=== PATIENT | male | born 1995 | race Caucasian/White ===

== ENCOUNTER 2017-12-29 05:24 | Emergency (ER) | payer OTHER ==
--- NOTE | 2017-12-29 05:49 | EDM.PDOC ---
ED HPI GENERAL MEDICAL PROBLEM - General Chief Complaint: Back Pain or Injury Stated Complaint: NECK/SHOULDER PAIN Time Seen by Provider: 12/29/17 05:40 - History of Present Illness INITIAL COMMENTS - FREE TEXT/NARRATIVE: HISTORY AND PHYSICAL: History of present illness: The patient is a healthy 22-year-old male who states that he has muscle spasm and pain at the right side of his neck that started yesterday morning when he turned his head quickly. He did not fall or hit his head or neck. He says the pain is not in the bones are in the midline of the neck but is in the muscles of the trapezius and the upper shoulder girdle on the right only. The pain does not radiate to his arm and there is no weakness or neurosensory changes in his arm. He has taken ibuprofen and the pain is still there and he would like to go back to work. He last took 800 mg of ibuprofen at approximately 4 AM. He has no other injuries or discomfort and no other systemic complaints Review of systems: As per history of present illness and below otherwise all systems reviewed and negative. Past medical history: As per history of present illness and as reviewed below otherwise noncontributory. Surgical history: As per history of present illness and as reviewed below otherwise noncontributory. Social history: No reported history of drug or alcohol abuse. Family history: As per history of present illness and as reviewed below otherwise noncontributory. Physical exam: General: Well-developed well-nourished man who is nontoxic and holds his head relatively still for my exam. He can turn his head slowly to the right and has more difficulty turning to the left digits the stretch of his neck. HEENT: Atraumatic, normocephalic, negative for conjunctival pallor or scleral icterus, mucous membranes moist, throat clear, neck supple, nontender, trachea midline. There are no midline step-offs tenderness defects of the cervical spine but there is discrete reproducible tenderness at palpation of the trapezius on the right extending into the upper shoulder girdle and up into the paraspinals of the posterior neck which reproduces the pain. Lungs: Clear to auscultation, breath sounds equal bilaterally, chest nontender. Heart: S1S2, regular rate and rhythm no overt murmurs Abdomen: Soft, nondistended, nontender. NABS Pelvis: Deferred Genitourinary: Deferred. Rectal: Deferred. Extremities: Atraumatic, negative for cords or calf pain. Neurovascular unremarkable. Neuro: Awake, alert, oriented. Cranial nerves II through XII unremarkable. Cerebellum unremarkable. Motor and sensory unremarkable throughout. Exam nonfocal. Diagnostics: [] Therapeutics: Patient recently took ibuprofen swelling not give a shot of Toradol and he would like to drive home so I will give him Norflex for home. Impression: Right neck and upper back musculoskeletal pain Definitive disposition and diagnosis as appropriate pending reevaluation and review of above. upper back Pain Score (Numeric/FACES): 8 - Related Data Allergies Allergy/AdvReac Type Severity Reaction Status Date / Time Penicillins Allergy Cannot Verified 12/29/17 05:41 Remember Home Meds: Home Meds Dextroamphetamine/Amphetamine [Adderall 20 mg Tablet] 1 tab PO TID 12/29/17 [ History] Past Medical History Psychiatric History: Reports: ADHD Social & Family History - Family History Family Medical History: Noncontributory - Tobacco Use Smoking Status *Q: Never Smoker - Recreational Drug Use Recreational Drug Use: No ED ROS GENERAL - Review of Systems Review Of Systems: ROS reveals no pertinent complaints other than HPI. ED EXAM, GENERAL - Physical Exam Exam: See Below (See dictation) Course - Vital Signs Last Recorded V/S: Last Vital Signs Temp 36.6 C 12/29/17 05:24 Pulse 93 12/29/17 05:24 Resp 16 12/29/17 05:24 BP 119/72 12/29/17 05:24 Pulse Ox 100 12/29/17 05:24 Departure - Departure Time of Disposition: 05:48 Disposition: Home, Self-Care 01 Condition: Good Clinical Impression: Neck pain, musculoskeletal - Discharge Information Referrals: Robert Anderson MD [Primary Care Provider] - Additional Instructions: The following information is given to patients seen in the emergency department who are being discharged to home. This information is to outline your options for follow-up care. We provide all patients seen in our emergency department with a follow-up referral. The need for follow-up, as well as the timing and circumstances, are variable depending upon the specifics of your emergency department visit. If you don't have a primary care physician on staff, we will provide you with a referral. We always advise you to contact your personal physician following an emergency department visit to inform them of the circumstance of the visit and for follow-up with them and/or the need for any referrals to a consulting specialist. The emergency department will also refer you to a specialist when appropriate. This referral assures that you have the opportunity for followup care with a specialist. All of these measure are taken in an effort to provide you with optimal care, which includes your followup. Under all circumstances we always encourage you to contact your private physician who remains a resource for coordinating your care. When calling for followup care, please make the office aware that this follow-up is from your recent emergency room visit. If for any reason you are refused follow-up, please contact the [facility] emergency department at and ask to speak to the emergency department charge nurse. [facility] Primary care- Internal Medicine and Family [id number] [address] [place] [address] Use ice after all activities and for the next 24 hours and then switch to heat. Please take [id number] ibuprofen as we discussed 800 mg every 8 hours to help with inflammation and add the Norflex you have been prescribed but only take the muscle relaxer when you're at home. Please call and schedule a follow- up appointment with your provider at [facility] or one of our providers and return to ER as needed and as discussed
== END 2017-12-29 06:10 | disposition home or self-care (01) ==
LOC: MW.ED 05:24
DX: M54.2 Cervicalgia (principal); Z88.0 Allergy status to penicillin
CPT/HCPCS: 99282